=== PATIENT | male | born 2000 | race Hispanic/Latino ===

== ENCOUNTER 2021-08-13 21:18 | Emergency (ER) | payer SELFPAY ==
[~2021-08-13] VITALS: Ht 152.4 cm; Wt 109.0 kg
[~2021-08-13 21:18] MED LIST: NO HOME MEDS; ZITHROMAX250 MG PO
[2021-08-13] MEDS ORDERED: MUPIROCIN2 % EX (22:53)
[2021-08-13 23:51] VITALS: BP 140/79
== END 2021-08-13 23:51 | disposition home or self-care (01) | DRG 607 ==
LOC: ED 21:18
DX: L25.9 Unspecified contact dermatitis, unspecified cause (principal)

== ENCOUNTER 2022-10-22 22:59 | Emergency (ER) | payer SELFPAY ==
[~2022-10-22] VITALS: Ht 167.6 cm; Wt 108.0 kg
[~2022-10-22 22:59] MED LIST changes: +MUPIROCIN2 % EX
[2022-10-22 23:26] VITALS: BP 136/80
[2022-10-22 23:31] VITALS: BP 137/83
[2022-10-23] VITALS: BP 136/77
[2022-10-23] LABS: BASO% 0.2 % (0-3); EOS% 0.8 % (0-8); HEMATOCRIT 45.1 % (39.0-50.0); IMMATURE GRANULOCYTES 0.1 % (0.0-5.0); LYMPH% 11.7 % (15-41); MEAN CELL VOLUME 89.5 fL CALC (80.0-100.0); MEAN CORPUSCULAR HGB 29.8 pG CALC (26.0-32.0); MEAN CORPUSCULAR HGB CONC 33.3 g/dL CAL (32.0-36.0); MONO% 1.6 % (2-13); NEUT# 7.69 thou/uL (1.82-7.42); NEUT% 85.6 % (42-76); RED BLOOD COUNT 5.04 mill/uL (4.70-6.10); RED CELL DISTRI WIDTH 11.9 % (11.5-15.5)
[2022-10-23 00:31] VITALS: BP 113/63
[2022-10-23 01:14] VITALS: BP 113/63
== END 2022-10-23 01:14 | disposition home or self-care (01) | DRG 866 ==
LOC: ED 22:59
PROVIDERS: Family Medicine
DX: B34.9 Viral infection, unspecified (principal)